=== PATIENT | male | born 1965 | race Caucasian/White ===

== ENCOUNTER 2018-05-27 18:22 | Emergency (ER) | payer SELFPAY ==
[2018-05-27] MEDS ORDERED: MECLIZINE HCL 12.5 MG TAB ONE (18:44)
[2018-05-27] MEDS ORDERED: NA CHLORIDE 0.9% 1,000 ML ONE (18:45)
[2018-05-27] MEDS ORDERED: ONDANSETRON 4 MG/2 ML VIAL ONE (18:45)
[2018-05-27 18:53] LABS: Absolute Monocytes 0.6 K/uL (0.1-1.3); Absolute Neutrophil 2.1 K/uL (1.8-8.0); Basophils % 0.8 % (0-1.3); Eosinophils % 2.9 % (0-4.4); Hematocrit 46.4 % (39.6-49.0); Lymphocytes % 40.8 % (15.3-44.8); MCH 32.9 pg (27.0-35.0); MCV 95.1 fL (80-100); MPV 9.1 fL (7.6-11.3); Monocytes % 11.5 % (3.3-12.3); RBC Red Blood Cell Count 4.88 M/uL (4.33-5.43)
[2018-05-27] MEDS ORDERED: PROMETHAZINE 25 MG/ML VIAL ONE (19:20)
[2018-05-27 19:21] LABS: Potassium 3.2 mmol/L (3.5-5.1)
--- NOTE | 2018-05-27 20:08 | RAD REPORT ---
EXAM DESCRIPTION: CT - Head Brain Wo Cont - 05/27/2018 7:53 pm CLINICAL HISTORY: Dizziness COMPARISON: None. TECHNIQUE: Computed axial tomography of the head was obtained. IV contrast was not requested. All CT scans are performed using dose optimization technique as appropriate and may include automated exposure control or mA/KV adjustment according to patient size. FINDINGS: An intracranial bleed is not seen . The ventricles are normal in caliber. No extra-axial fluid collection is noted. A rusty cisterna magna is seen Fluid within the sinuses/ mastoids is not seen. IMPRESSION: No acute intracranial abnormality is seen. If patient's symptoms persist MRI of the bra in would be recommended.
--- NOTE | 2018-05-27 20:37 | EDPHYS ---
Physician Documentation [facility] Name: Cb Kuo Age: 52 yrs Sex: Male : 1965 Arrival Date: 05/27/2018 Time: 18:26 Bed 5 Private MD: ED Physician Theodore Fleming HPI: 05/27 18:50 This 52 yrs old Male presents to ER via Unassigned with complaints of ear ringing and snw nausea. 18:50 Onset: The symptoms/episode began/occurred suddenly, just prior to arrival, and became snw persistent. Associated signs and symptoms: Pertinent positives: usually happens when pt's BP is elevated per report. 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 Modifying factors: The patient symptoms are alleviated by unknown. The patient has experienced similar episodes in the past, multiple times. The patient has not recently seen a physician. works away from home. Historical: - Allergies: 18:26 PENICILLINS; aa5 - Home Meds: 18:26 Hydrochlorothiazide Oral [Active]; aa5 - PMHx: 18:26 Hypertension; aa5 - PSHx: 18:26 Appendectomy; aa5 - Immunization history:: Adult Immunizations unknown. - Social history:: Smoking status: Patient/guardian denies using tobacco. - Ebola Screening: : No symptoms or risks identified at this time. ROS: 18:49 Constitutional: Negative for fever, chills, and weight loss, Eyes: Negative for injury, snw pain, redness, and discharge, Neck: Negative for injury, pain, and swelling, Cardiovascular: Negative for chest pain, palpitations, and edema, Respiratory: Negative for shortness of breath, cough, wheezing, and pleuritic chest pain, Abdomen/GI: Negative for abdominal pain, nausea, vomiting, diarrhea, and constipation, Back: Negative for injury and pain, : Negative for injury, bleeding, discharge, and swelling, MS/Extremity: Negative for injury and deformity, Skin: Negative for injury, rash, and discoloration. 18:49 ENT: Positive for tinnitus, sudden and severe to left ear. 18:49 Neuro: Positive for dizziness. Exam: 18:48 Constitutional: This is a well developed, well nourished patient who is awake, alert, snw and in no acute distress. Head/Face: Normocephalic, atraumatic. Eyes: Pupils equal round and reactive to light, extra-ocular motions intact. Lids and lashes normal. Conjunctiva and sclera are non-icteric and not injected. Cornea within normal limits. Periorbital areas with no swelling, redness, or edema. 18:48 Neck: Trachea midline, no thyromegaly or masses palpated, and no cervical lymphadenopathy. Supple, full range of motion without nuchal rigidity, or vertebral point tenderness. No Meningismus. Chest/axilla: Normal chest wall appearance and motion. Nontender with no deformity. No lesions are appreciated. Cardiovascular: Regular rate and rhythm with a normal S1 and S2. No gallops, murmurs, or rubs. Normal PMI, no JVD. No pulse deficits. Respiratory: Lungs have equal breath sounds bilaterally, clear to auscultation and percussion. No rales, rhonchi or wheezes noted. No increased work of breathing, no retractions or nasal flaring. Abdomen/GI: Soft, non-tender, with normal bowel sounds. No distension or tympany. No guarding or rebound. No evidence of tenderness throughout. Back: No spinal tenderness. No costovertebral tenderness. Full range of motion. Skin: Warm, dry with normal turgor. Normal color with no rashes, no lesions, and no evidence of cellulitis. MS/ Extremity: Pulses equal, no cyanosis. Neurovascular intact. Full, normal range of motion. Neuro: Awake and alert, GCS 15, oriented to person, place, time, and situation. Cranial nerves II-XII grossly intact. Motor strength 5/5 in all extremities. Sensory grossly intact. Cerebellar exam normal. Normal gait. Psych: Awake, alert, with orientation to person, place and time. Behavior, mood, and affect are within normal limits. 18:48 ENT: TM's: fluid levels, on the left, Nose: is normal, Mouth: is normal, Posterior pharynx: is normal. Vital Signs: 18:30 BP 127 / 72; Pulse 68; Resp 18 S; Temp 98.0(O); Pulse Ox 98% on R/A; Pain 0/10; aa5 20:37 BP 109 / 56; Pulse 70; Resp 18; Pulse Ox 98% on R/A; ea MDM: 18:35 Patient medically screened. snw 20:37 Data reviewed: vital signs, nurses notes. Data interpreted: Pulse oximetry: on room air snw is 98 %. Interpretation: normal. Counseling: I had a detailed discussion with the patient and/or guardian regarding: the historical points, exam findings, and any diagnostic results supporting the discharge/admit diagnosis, the presence of at least one elevated blood pressure reading (>120/80) during this emergency department visit, lab results, radiology results, the need for outpatient follow up, to return to the emergency department if symptoms worsen or persist or if there are any questions or concerns that arise at home. Special discussion: Based on the history and exam findings, there is no indication for further emergent testing or inpatient evaluation. I discussed with the patient/guardian the need to see the ENT specialist for further evaluation of the symptoms. I discussed with the patient/guardian the need to see the primary care provider for further evaluation of the symptoms. 05/27 18:35 Order name: Basic Metabolic Panel; Complete Time: 19:22 snw 05/27 18:35 Order name: CBC with Diff; Complete Time: 18:57 snw 05/27 18:35 Order name: CT Head Brain wo Cont; Complete Time: 20:12 snw 05/27 18:35 Order name: IV Saline Lock; Complete Time: 18:45 snw 05/27 18:35 Order name: Labs collected and sent; Complete Time: 18:45 snw Administered Medications: 18:38 Drug: NS 0.9% 1000 ml Route: IV; Rate: 1 bolus; Site: left antecubital; aa5 20:44 Follow up: Response: No adverse reaction; IV Status: Completed infusion; IV Intake: ea 1000ml 18:40 Drug: Meclizine 50 mg Route: PO; aa5 19:00 Follow up: Response: Nausea unchanged ea 18:46 CANCELLED (Physician Discretion): Zofran 4 mg PO once aa5 18:46 Drug: Zofran 4 mg Route: IVP; Site: left antecubital; aa5 19:00 Follow up: Response: Nausea unchanged ea 19:15 Drug: Phenergan 6.25 mg Route: IVP; Site: left antecubital; ea 20:40 Follow up: Response: No adverse reaction; Nausea is decreased ea 20:44 Drug: Potassium Effervescent Tablet 50 mEq Route: PO; ea 21:36 Follow up: Response: No adverse reaction ea 21:34 Not Given (Patient Refused): Ativan 1 mg IVP once ea Disposition: 05/28 07:26 Co-signature as Attending Physician, Theodore Fleming MD I agree with the assessment and kdr plan of care. Disposition: 05/27/18 20:36 Discharged to Home. Impression: Tinnitus, left ear, Dizziness and giddiness. - Condition is Stable. - Discharge Instructions: Dizziness, Tinnitus, Hypertension. - Prescriptions for Antivert 25 mg Oral Tablet - take 1 tablet by ORAL route every 8 hours As needed; 20 tablet. - Work release form, Medication Reconciliation Form, Thank You Letter, Antibiotic Education, Prescription Opioid Use form. - Follow up: Private Physician; When: 1 - 2 days; Reason: Recheck today's complaints, Continuance of care, Re-evaluation by your physician. Follow up: Emergency Department; When: As needed; Reason: Worsening of condition. Signatures: Dispatcher [employer] EDAR Theodore Fleming MD MD [facility] Fauzia Limon, [facility] [employer]-Chrisw Blank Calderón, RN RN aa5 Angeline Swartz, RN RN ea Corrections: (The following items were deleted from the chart) 05/27 18:46 18:35 Zofran 4 mg PO once ordered. snw aaAna 21:37 20:36 05/27/2018 20:36 Discharged to Home. Impression: Tinnitus, left ear; Dizziness ea and giddiness. Condition is Stable. Forms are Medication Reconciliation Form, Thank You Letter, Antibiotic Education, Prescription Opioid Use. Follow up: Private Physician; When: 1 - 2 days; Reason: Recheck today's complaints, Continuance of care, Re-evaluation by your physician. Follow up: Emergency Department; When: As needed; Reason: Worsening of condition. snw
--- NOTE | 2018-05-27 20:37 | ER ---
Nurse's Notes [facility] Name: Cb Kuo Age: 52 yrs Sex: Male : 1965 Arrival Date: 05/27/2018 Time: 18:26 Bed 5 Private MD: Diagnosis: Tinnitus, left ear;Dizziness and giddiness Presentation: 05/27 18:26 Care prior to arrival: Oxygen administered. via nasal cannula. aa5 18:26 Presenting complaint: ringing to left ear,dizziness, and nausea that began aa5 approximately 1-2 hours ago. Pt actively vomiting. Pt states "I took an amlodipine because I've had the ringing before and it happens when my blood pressure is high". Transition of care: patient was not received from another setting of care. Onset of symptoms was May 27, 2018. Risk Assessment: Do you want to hurt yourself or someone else? Patient reports no desire to harm self or others. Initial Sepsis Screen: Does the patient meet any 2 criteria? No. Patient's initial sepsis screen is negative. Does the patient have a suspected source of infection? No. Patient's initial sepsis screen is negative. 18:26 Acuity: SHAN 3 aa5 18:26 Method Of Arrival: EMS: [facility] aa5 Historical: - Allergies: 18:26 PENICILLINS; aa5 - Home Meds: 18:26 Hydrochlorothiazide Oral [Active]; aa5 - PMHx: 18:26 Hypertension; aa5 - PSHx: 18:26 Appendectomy; aa5 - Immunization history:: Adult Immunizations unknown. - Social history:: Smoking status: Patient/guardian denies using tobacco. - Ebola Screening: : No symptoms or risks identified at this time. Screenin:30 Abuse screen: Denies threats or abuse. Nutritional screening: No deficits noted. aa5 Tuberculosis screening: No symptoms or risk factors identified. Fall Risk None identified. Assessment: 18:30 General: Appears uncomfortable, Behavior is calm, cooperative. Pain: Denies pain. aa5 Neuro: Level of Consciousness is awake, alert, obeys commands, Oriented to person, place, time, situation, [employer] are equal bilaterally Moves all extremities. Speech is normal, Facial symmetry appears normal, Pupils are PERRLA, Reports dizziness. Cardiovascular: Heart tones S1 S2 present Rhythm is regular. Respiratory: Airway is patent Respiratory effort is even, unlabored, Respiratory pattern is regular, symmetrical. GI: Abdomen is round Bowel sounds present X 4 quads. Abd is soft and non tender X 4 quads. Reports nausea, Report vomiting just started upon arrival to ER. : No signs and/or symptoms were reported regarding the genitourinary system. EENT: Reports ringing in left ear. Derm: Skin is pink, warm \\T\\ dry. Musculoskeletal: Range of motion: intact in all extremities. 19:00 General: Appears uncomfortable, Behavior is calm, cooperative. Pain: Denies pain. ea Neuro: Level of Consciousness is awake, alert, obeys commands, Oriented to person, place, time, situation, Reports dizziness. Cardiovascular: Heart tones S1 S2 present. Respiratory: Airway is patent Respiratory effort is even, unlabored, Respiratory pattern is regular, symmetrical. GI: Abdomen is round Bowel sounds present X 4 quads. Derm: Skin is pink, warm \\T\\ dry. 20:29 Reassessment: pt resting comfortably. pt denies nausea or dizziness at this time. pt ak1 informed of wait for CT results. pt discussed the Ativan IV that is ordered and would like to wait for administration at this time as pt stated he feels better right now. Vital Signs: 18:30 BP 127 / 72; Pulse 68; Resp 18 S; Temp 98.0(O); Pulse Ox 98% on R/A; Pain 0/10; aa5 20:37 BP 109 / 56; Pulse 70; Resp 18; Pulse Ox 98% on R/A; ea ED Course: 18:26 Patient arrived in ED. aa5 18:26 Arm band placed on Patient placed in an exam room, on a stretcher. aa5 18:26 Patient has correct armband on for positive identification. Placed in gown. Bed in low aa5 position. Call light in reach. Side rails up X2. Pulse ox on. NIBP on. 18:27 Blank Calderón RN is Primary Nurse. aa5 18:34 Delio Limon FNP-C is PHCP. snw 18:34 Theodore Fleming MD is Attending Physician. snw 18:35 Initial lab(s) drawn, by me, sent to lab. Inserted saline lock: 20 gauge in left aa5 antecubital area, using aseptic technique. Blood collected. 18:47 Radiology exam delayed due to PT DOES NOT WANT TO COME TO CT AT THIS TIME, STATES HE vm2 DOES NOT FEEL GOOD. 18:50 Triage completed. aa5 18:57 Report given to Mel RN and ALBERT Marcus. aa5 19:09 Radiology exam delayed due to PT STATES HE CAN NOT COME DOWN TO CT AT THIS TIME, DUE TO vm2 BEING TOO DIZZY. 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 19:[address] vm2 19:20 CT completed. Patient tolerated procedure well. Patient moved back from CT. vm2 19:22 CT Head Brain wo Cont In Process Unspecified. EDMS 21:18 No provider procedures requiring assistance completed. IV discontinued, intact, ea bleeding controlled, No redness/swelling at site. Pressure dressing applied. Administered Medications: 18:38 Drug: NS 0.9% 1000 ml Route: IV; Rate: 1 bolus; Site: left antecubital; aa5 20:44 Follow up: Response: No adverse reaction; IV Status: Completed infusion; IV Intake: ea 1000ml 18:40 Drug: Meclizine 50 mg Route: PO; aa5 19:00 Follow up: Response: Nausea unchanged ea 18:46 CANCELLED (Physician Discretion): Zofran 4 mg PO once aa5 18:46 Drug: Zofran 4 mg Route: IVP; Site: left antecubital; aa5 19:00 Follow up: Response: Nausea unchanged ea 19:15 Drug: Phenergan 6.25 mg Route: IVP; Site: left antecubital; ea 20:40 Follow up: Response: No adverse reaction; Nausea is decreased ea 20:44 Drug: Potassium Effervescent Tablet 50 mEq Route: PO; ea 21:36 Follow up: Response: No adverse reaction ea 21:34 Not Given (Patient Refused): Ativan 1 mg IVP once ea Intake: 20:44 IV: 1000ml; Total: 1000ml. ea Outcome: 20:36 Discharge ordered by MD. lara 21:36 Discharged to home ambulatory, with friend. ea 21:36 Condition: improved 21:36 Discharge instructions given to patient, Instructed on discharge instructions, follow up and referral plans. medication usage, Demonstrated understanding of instructions, follow-up care, medications, Prescriptions given X 1. 21:37 Patient left the ED. ea Signatures: Dispatcher [employer] EDDelio Shirley, [employer]IAN-Blank Jiang, RN RN aa5 Mel Perez RN RN ak1 Margot Eldridge 2 Angeline Swarzt RN RN ea Corrections: (The following items were deleted from the chart) 19:10 19:05 Patient moved to [place] via stretcher. vm2 vm2
[2018-05-27] MEDS ORDERED: POTASSIUM 25 MEQ EFFERV TAB ONE (20:49)
== END 2018-05-27 21:37 | disposition home or self-care (01) ==
LOC: ER 18:22
DX: H93.12 Tinnitus, left ear (principal); I10 Essential (primary) hypertension; Z88.0 Allergy status to penicillin
CPT/HCPCS: 36415; 70450; 80048; 85025; 96361; 96374; 96375; 99284; J2405; J2550; J7030